=== PATIENT | male | born 1945 | race Caucasian/White ===

== ENCOUNTER 2021-11-18 11:04 | Outpatient (RCR) | payer MEDICARE | END 2021-12-16 | LOC: RESP 11:04 | PROVIDERS: ATTEND Internal Medicine | DX: Z94.2 Lung transplant status (principal); T86.810 Lung transplant rejection | CPT/HCPCS: 94626 ×4; 94799; G0238 ×4 ==

== ENCOUNTER 2021-12-23 09:58 | Outpatient (RCR) | payer MEDICARE | END 2022-01-15 | LOC: RESP 09:58 | DX: T86.810 Lung transplant rejection (principal); Z94.2 Lung transplant status; I82.412 Acute embolism and thrombosis of left femoral vein | CPT/HCPCS: 94626 ×6; G0238 ×6 ==

== ENCOUNTER 2022-01-16 | Outpatient (RCR) | payer MEDICARE | END 2022-02-15 | LOC: RESP | DX: Z94.2 Lung transplant status (principal); T86.810 Lung transplant rejection | CPT/HCPCS: 94626 ×5; G0238 ×5 ==

== ENCOUNTER 2022-02-19 13:16 | Outpatient (RCR) | payer MEDICARE | END 2022-03-18 | LOC: RESP 13:16 | PROVIDERS: ATTEND Internal Medicine | DX: Z94.2 Lung transplant status (principal); T86.810 Lung transplant rejection | CPT/HCPCS: 94626 ×5; G0238 ×5 ==

== ENCOUNTER 2022-04-14 10:00 | Outpatient (RCR) | payer MEDICARE | END 2022-04-15 | LOC: RESP 10:00 | PROVIDERS: ATTEND Internal Medicine | DX: Z94.2 Lung transplant status (principal); T86.810 Lung transplant rejection | CPT/HCPCS: 94626 ×8; G0238 ×8 ==

== ENCOUNTER 2022-04-25 10:44 | Emergency (ER) | payer MEDICARE ==
[~2022-04-25] VITALS: Ht 162.6 cm; Wt 65.8 kg
[2022-04-25] MEDS ORDERED: ACETAMINOPHEN500 MG PO (11:55)
[2022-04-25] MEDS ORDERED: LIPITOR20 MG PO (12:57)
[2022-04-25] MEDS ORDERED: BASAGLAR K100 UNIT/1 (12:57)
[2022-04-25] MEDS ORDERED: ELIQUIS2.5 MG PO (12:57)
[2022-04-25] MEDS ORDERED: PREDNISONE5 MG/5 ML PO (12:57)
[2022-04-25] MEDS ORDERED: COREG6.25 MG PO (12:57)
[2022-04-25] MEDS ORDERED: NOVOLOG100 UNIT/1 SC (12:57)
[2022-04-25] MEDS ORDERED: FLOMAX0.4 MG PO (12:57)
[2022-04-25] MEDS ORDERED: PROGRAF1 MG PO (12:57)
[2022-04-25] MEDS ORDERED: SPORANOX100 MG PO (12:57)
[2022-04-25] MEDS ORDERED: bumex (12:57)
[2022-04-25] MEDS ORDERED: PREVACID15 M1 (12:57)
[2022-04-25] MEDS ORDERED: CARTIA XT180 MG (12:57)
[2022-04-25] MEDS ORDERED: [UNRECOGNIZED DRUG - OTHER] (12:57)
[2022-04-25] MEDS ORDERED: ZITHROMAX250 MG PO (12:57)
[2022-04-25] MEDS ORDERED: ATOVAQUONE750 MG/5 M PO (12:57)
[2022-04-25] MEDS ORDERED: Vancomycin IV 1 GM VIAL ONE (13:48)
[2022-04-25] MEDS ORDERED: SODIUM CHLORIDE 0.9% 250ML 250 ML ONE (13:48)
[2022-04-25] MEDS ORDERED: CLEOCIN HCL300 MG PO (13:48)
[2022-04-25] MEDS ORDERED: PROBIOTIC & AC1 EACH PO (13:48)
[2022-04-25] MEDS ORDERED: INSULIN REGULAR, HUMAN 100 UNIT/1 ML SQ ONE (14:00)
[2022-04-25] MEDS ORDERED: Vancomycin IV 1 GM in SODIUM CHLORIDE 0.9% 250ML 250 ML IV ONE (14:00)
== END 2022-04-25 12:15 | disposition home or self-care (01) ==
LOC: FSED 10:53
DX: S83.91XA Sprain of unspecified site of right knee, initial encounter (principal); G89.11 Acute pain due to trauma; L03.115 Cellulitis of right lower limb; E11.65 Type 2 diabetes mellitus with hyperglycemia; E11.22 Type 2 diabetes mellitus with diabetic chronic kidney disease; I12.9 Hypertensive chronic kidney disease with stage 1 through stage 4 chronic kidney disease, or unspecified chronic kidney disease; N18.4 Chronic kidney disease, stage 4 (severe); X58.XXXA Exposure to other specified factors, initial encounter; Y93.89 Activity, other specified; Y92.89 Other specified places as the place of occurrence of the external cause; Z79.4 Long term (current) use of insulin; Z79.02 Long term (current) use of antithrombotics/antiplatelets; Z79.899 Other long term (current) drug therapy; Z94.2 Lung transplant status; Z95.1 Presence of aortocoronary bypass graft
CPT/HCPCS: 73562; 83605; 87040; 99284; J1817; J3370; J7050

== ENCOUNTER 2022-05-19 16:09 | Outpatient (RCR) | payer MEDICARE ==
[~2022-05-19 16:09] MED LIST: ACETAMINOPHEN500 MG PO; ATOVAQUONE750 MG/5 M PO; BASAGLAR K100 UNIT/1; CARTIA XT180 MG; CLEOCIN HCL300 MG PO; COREG6.25 MG PO; ELIQUIS2.5 MG PO; FLOMAX0.4 MG PO; LIPITOR20 MG PO; NOVOLOG100 UNIT/1 SC; PREDNISONE5 MG/5 ML PO; PREVACID15 M1; PROBIOTIC & AC1 EACH PO; PROGRAF1 MG PO; SPORANOX100 MG PO; ZITHROMAX250 MG PO; [UNRECOGNIZED DRUG - OTHER]; bumex
== END 2022-06-15 ==
LOC: RESP 16:09
PROVIDERS: ATTEND Internal Medicine
DX: T86.810 Lung transplant rejection (principal)
CPT/HCPCS: 94626; G0238